=== PATIENT | male | born 1980 | race Two or more races ===

== ENCOUNTER 2017-10-05 15:29 | Emergency (ER) | payer MEDICAID ==
[~2017-10-05] VITALS: Ht 170.2 cm; Wt 80.3 kg
[2017-10-05 16:40] VITALS: Ht 170.2 cm; Wt 80.3 kg
[2017-10-05 18:35] VITALS: BP 126/79
== END 2017-10-05 18:35 | disposition home or self-care (01) ==
LOC: ED 15:29
DX: T16.1XXA Foreign body in right ear, initial encounter (principal); X58.XXXA Exposure to other specified factors, initial encounter; Y93.89 Activity, other specified; Y92.89 Other specified places as the place of occurrence of the external cause; Y99.8 Other external cause status